=== PATIENT | female | born 1960 | race Hispanic/Latino ===

== ENCOUNTER 2020-12-25 16:22 | Emergency (ER) | payer BC, OTHER ==
[~2020-12-25] VITALS: Ht 157.5 cm; Wt 111.6 kg
[~2020-12-25 16:22] MED LIST: DIFLUCAN100 MG PO; HUMALOG100 UNIT/1 SC; HUMALOG100 UNITS/ SQ; Insulin Detemir SQ; LEVEMIR100 UNIT/1 SC; Z.0.ACTOS45 MG; Z.0.AMARYL4 MG; Z.0.CRESTOR20 MG; Z.0.CRESTOR20 MG PO; Z.0.JANUVIA100 MG PO; Z.0.JANUVIA50 MG; Z.0.LIPITOR40 MG; Z.0.VASOTEC10 MG PO
[2020-12-25] MEDS ORDERED: MECLIZINE HCL12.5 MG PO (16:46)
[2020-12-25 17:08] LABS: BASOPHILS % 0.4 % (0.0-1.0); EOSINOPHILS # (AUTO) 0.2 (0.0-0.4); EOSINOPHILS % 2.8 % (0.0-6.0); HEMATOCRIT 36.6 % (34.2-44.1); HEMOGLOBIN 11.8 g/dL (12.0-16.0); LYMPHOCYTES # (AUTO) 2.8 (1.0-3.2); LYMPHOCYTES % 40.6 % (18.0-39.1); MEAN CORPUSCULAR HEMOGLOBIN 28.6 pg (28-32); MEAN CORPUSCULAR HGB CONC 32.2 g/dL (31-35); MEAN CORPUSCULAR VOLUME 88.8 fL (81-99); MONOCYTES # (AUTO) 0.5 (0.2-0.8); MONOCYTES % 6.6 % (4.4-11.3); NEUTROPHILS # (AUTO) 3.4 (2.1-6.9); NEUTROPHILS % 49.3 % (38.7-80.0); PLATELET COUNT 323 x10e3/uL (140-360); RED BLOOD COUNT 4.12 x10e6/uL (3.6-5.1); RED CELL DISTRIBUTION WIDTH 13.2 % (11.7-14.4)
[2020-12-25 18:05] LABS: ALBUMIN 3.3 g/dL (3.5-5.0); ANION GAP 12.8 mmol/L (8-16); CALCIUM 8.4 mg/dL (8.4-10.2); CREATININE, SERUM 1.14 mg/dL (0.57-1.11); POTASSIUM 3.8 mmol/L (3.5-5.1)
[2020-12-25 19:11] LABS: CLARITY,URINE CLEAR (CLEAR); COLOR,URINE YELLOW (YELLOW)
[2020-12-25 19:12] LABS: KETONES,URINE NEGATIVE (NEGATIVE); LEUKOCYTE ESTERASE ,URINE NEGATIVE (NEGATIVE); NITRITE,URINE NEGATIVE (NEGATIVE); PROTEIN,URINE DIPSTICK NEGATIVE (NEGATIVE); URINE UROBILINOGEN 0.2 mg/dL (0.2 - 1)
[2020-12-25 19:19] LABS: BACTERIA,URINE MANY /HPF; EPITHELIAL CELLS,URINE MANY /LPF
[2020-12-25] MEDS ORDERED: MECLIZINE HCL 12.5 MG TAB PO SCH (21:00)
[2020-12-25 22:08] VITALS: BP 152/75
== END 2020-12-25 22:00 | disposition home or self-care (01) ==
LOC: ER 16:26
DX: R42 Dizziness and giddiness (principal); I10 Essential (primary) hypertension; E78.00 Pure hypercholesterolemia, unspecified; Z87.442 Personal history of urinary calculi
CPT/HCPCS: 36415; 70450; 80053; 81001; 85025; 99284; J8597